=== PATIENT | male | born 1970 | race Caucasian/White ===

== ENCOUNTER 2017-06-21 07:46 | Outpatient (CLI) | payer OTHER | END 2017-06-21 07:59 | disposition home or self-care (01) | LOC: LAB 07:46 | DX: I10 Essential (primary) hypertension (principal); E11.9 Type 2 diabetes mellitus without complications; E03.9 Hypothyroidism, unspecified; E78.2 Mixed hyperlipidemia; E55.9 Vitamin D deficiency, unspecified; N41.0 Acute prostatitis ==

== ENCOUNTER → 2017-06-28 | Outpatient (CLI) | payer OTHER | END | disposition home or self-care (01) | LOC: LAB 08:36 | DX: D64.89 Other specified anemias (principal) ==

== ENCOUNTER 2018-04-17 16:22 | Outpatient (CLI) | payer OTHER | END 2018-04-17 16:31 | disposition home or self-care (01) | LOC: LAB 16:22 | DX: D69.8 Other specified hemorrhagic conditions (principal) ==

== ENCOUNTER 2018-04-21 08:12 | Outpatient (CLI) | payer OTHER | END 2018-04-21 17:37 | disposition home or self-care (01) | LOC: LAB 08:12 | DX: D55.0 Anemia due to glucose-6-phosphate dehydrogenase [G6PD] deficiency (principal); D69.6 Thrombocytopenia, unspecified; B33.8 Other specified viral diseases; B58.8 Toxoplasmosis with other organ involvement; B27.10 Cytomegaloviral mononucleosis without complications ==

== ENCOUNTER 2018-04-27 12:26 | Outpatient (CLI) | payer OTHER | END 2018-04-27 15:00 | disposition home or self-care (01) | LOC: LAB 12:26 | DX: B33.8 Other specified viral diseases (principal); D69.6 Thrombocytopenia, unspecified ==

== ENCOUNTER 2018-06-05 09:10 | Outpatient (CLI) | payer OTHER | END 2018-06-05 13:49 | disposition home or self-care (01) | LOC: LAB 09:10 | DX: D69.8 Other specified hemorrhagic conditions (principal) ==

== ENCOUNTER 2018-06-27 09:42 | Outpatient (CLI) | payer OTHER | END 2018-06-27 13:02 | disposition home or self-care (01) | LOC: LAB 09:42 | DX: D69.8 Other specified hemorrhagic conditions (principal) ==

== ENCOUNTER 2018-07-31 07:32 | Outpatient (CLI) | payer OTHER | END 2018-07-31 16:44 | disposition home or self-care (01) | LOC: LAB 07:32 | DX: Z11.3 Encounter for screening for infections with a predominantly sexual mode of transmission (principal); R74.0 Nonspecific elevation of levels of transaminase and lactic acid dehydrogenase [LDH]; D69.6 Thrombocytopenia, unspecified; A64 Unspecified sexually transmitted disease; Z20.2 Contact with and (suspected) exposure to infections with a predominantly sexual mode of transmission; Z11.4 Encounter for screening for human immunodeficiency virus [HIV] ==

== ENCOUNTER 2018-08-09 07:24 | Outpatient (CLI) | payer OTHER | END 2018-08-09 08:00 | disposition home or self-care (01) | LOC: LAB 07:24 | DX: B20 Human immunodeficiency virus [HIV] disease (principal) ==

== ENCOUNTER 2018-10-24 04:54 | Day surgery (SDC) | payer OTHER ==
[~2018-10-24 04:54] MED LIST: PRILOSEC10 MG PO; [UNRECOGNIZED DRUG - OTHER] PO; [UNRECOGNIZED DRUG - OTHER] PO
== END 2018-10-24 11:30 | disposition home or self-care (01) ==
LOC: CIR.AMB 04:54 → AMB-ENDOS 09:30 → CIR.AMB 11:30
DX: C83.30 Diffuse large B-cell lymphoma, unspecified site (principal); Z21 Asymptomatic human immunodeficiency virus [HIV] infection status
CPT/HCPCS: 36561; C1751

== ENCOUNTER 2018-11-22 09:02 | Outpatient (CLI) | payer OTHER | END 2018-11-22 15:19 | disposition home or self-care (01) | LOC: LAB 09:02 | DX: D64.89 Other specified anemias (principal); D70.1 Agranulocytosis secondary to cancer chemotherapy ==

== ENCOUNTER 2018-12-04 10:46 | Outpatient (CLI) | payer OTHER | END 2018-12-04 15:00 | disposition home or self-care (01) | LOC: LAB 10:46 | DX: D70.1 Agranulocytosis secondary to cancer chemotherapy (principal) ==

== ENCOUNTER 2018-12-18 10:41 | Outpatient (CLI) | payer OTHER | END 2018-12-18 10:50 | disposition home or self-care (01) | LOC: LAB 10:41 | DX: D64.89 Other specified anemias (principal) ==

== ENCOUNTER → 2019-01-01 11:03 | Outpatient (CLI) | payer OTHER | END | disposition home or self-care (01) | LOC: LAB 11:03 | DX: D64.89 Other specified anemias (principal) ==

== ENCOUNTER 2019-01-16 10:59 | Outpatient (CLI) | payer OTHER | END 2019-01-16 11:07 | disposition home or self-care (01) | LOC: LAB 10:59 | DX: D64.89 Other specified anemias (principal) ==

== ENCOUNTER 2019-01-25 08:14 | Outpatient (CLI) | payer OTHER | END 2019-01-25 08:21 | disposition home or self-care (01) | LOC: LAB 08:14 | DX: B20 Human immunodeficiency virus [HIV] disease (principal) ==

== ENCOUNTER 2019-02-15 09:34 | Outpatient (CLI) | payer OTHER | END 2019-02-15 09:37 | disposition home or self-care (01) | LOC: LAB 09:34 | DX: D64.89 Other specified anemias (principal); B20 Human immunodeficiency virus [HIV] disease; Z11.4 Encounter for screening for human immunodeficiency virus [HIV] ==

== ENCOUNTER → 2019-02-26 10:11 | Outpatient (CLI) | payer OTHER | END | disposition home or self-care (01) | LOC: LAB 10:11 | DX: D70.1 Agranulocytosis secondary to cancer chemotherapy (principal); B00.1 Herpesviral vesicular dermatitis ==

== ENCOUNTER → 2019-03-12 11:18 | Outpatient (CLI) | payer OTHER | END | disposition home or self-care (01) | LOC: LAB 11:18 | DX: D64.89 Other specified anemias (principal) ==

== ENCOUNTER → 2019-03-19 10:06 | Outpatient (CLI) | payer OTHER | END | disposition home or self-care (01) | LOC: LAB 10:06 | DX: E03.8 Other specified hypothyroidism (principal); D70.1 Agranulocytosis secondary to cancer chemotherapy ==

== ENCOUNTER 2019-03-26 12:43 | Outpatient (CLI) | payer OTHER | END 2019-03-26 15:00 | disposition home or self-care (01) | LOC: LAB 12:43 | DX: D70.1 Agranulocytosis secondary to cancer chemotherapy (principal) ==

== ENCOUNTER 2019-04-25 09:43 | Outpatient (CLI) | payer OTHER | END 2019-04-25 15:00 | disposition home or self-care (01) | LOC: LAB 09:43 | DX: E03.8 Other specified hypothyroidism (principal); R74.0 Nonspecific elevation of levels of transaminase and lactic acid dehydrogenase [LDH]; C90.00 Multiple myeloma not having achieved remission; M16.9 Osteoarthritis of hip, unspecified ==

== ENCOUNTER 2019-04-27 10:31 | Outpatient (CLI) | payer OTHER | END 2019-04-27 10:53 | disposition home or self-care (01) | LOC: NUCLEAR 10:31 | DX: C83.39 Diffuse large B-cell lymphoma, extranodal and solid organ sites (principal) | CPT/HCPCS: 78815; A9552 ==

== ENCOUNTER 2019-06-12 12:21 | Outpatient (CLI) | payer OTHER | END 2019-06-12 12:32 | disposition home or self-care (01) | LOC: LAB 12:21 | DX: D64.89 Other specified anemias (principal) ==

== ENCOUNTER 2019-08-06 09:24 | Outpatient (CLI) | payer OTHER | END 2019-08-06 09:42 | disposition home or self-care (01) | LOC: LAB 09:24 | DX: D61.818 Other pancytopenia (principal); R74.9 Abnormal serum enzyme level, unspecified; C83.39 Diffuse large B-cell lymphoma, extranodal and solid organ sites; C90.00 Multiple myeloma not having achieved remission ==

== ENCOUNTER → 2019-09-05 11:12 | Outpatient (CLI) | payer OTHER | END | disposition home or self-care (01) | LOC: LAB 11:12 | DX: B19.10 Unspecified viral hepatitis B without hepatic coma (principal); M25.541 Pain in joints of right hand; M25.641 Stiffness of right hand, not elsewhere classified ==

== ENCOUNTER 2019-10-03 09:07 | Outpatient (CLI) | payer OTHER | END 2019-10-03 09:23 | disposition home or self-care (01) | LOC: TOM 09:07 | PROVIDERS: ATTEND Internal Medicine Hematology & Oncology | DX: I26.99 Other pulmonary embolism without acute cor pulmonale (principal) ==

== ENCOUNTER 2019-10-08 10:26 | Outpatient (CLI) | payer OTHER | END 2019-10-08 10:40 | disposition home or self-care (01) | LOC: NUCLEAR 10:26 | PROVIDERS: ATTEND Internal Medicine Hematology & Oncology | DX: I82.622 Acute embolism and thrombosis of deep veins of left upper extremity (principal) ==

== ENCOUNTER 2020-01-09 06:37 | Outpatient (CLI) | payer OTHER | END 2020-01-09 06:50 | disposition home or self-care (01) | LOC: LAB 06:37 | PROVIDERS: ATTEND Specialist | DX: T82.598A Other mechanical complication of other cardiac and vascular devices and implants, initial encounter (principal); Z21 Asymptomatic human immunodeficiency virus [HIV] infection status; Z01.811 Encounter for preprocedural respiratory examination; Z01.812 Encounter for preprocedural laboratory examination; Z01.810 Encounter for preprocedural cardiovascular examination ==

== ENCOUNTER 2020-01-17 07:16 | Day surgery (SDC) | payer OTHER | END 2020-01-17 14:30 | disposition home or self-care (01) | LOC: CIR.AMB 07:16 | PROVIDERS: ATTEND Specialist | DX: T82.598A Other mechanical complication of other cardiac and vascular devices and implants, initial encounter (principal); Z20.828 Contact with and (suspected) exposure to other viral communicable diseases; B07.8 Other viral warts ==

== ENCOUNTER 2020-04-21 09:37 | Outpatient (CLI) | payer OTHER | END 2020-04-21 18:00 | disposition home or self-care (01) | LOC: LAB 09:37 | PROVIDERS: ATTEND Internal Medicine Infectious Disease | DX: Z00.00 Encounter for general adult medical examination without abnormal findings (principal); D64.89 Other specified anemias ==

== ENCOUNTER 2020-05-22 07:45 | Outpatient (CLI) | payer OTHER | END 2020-05-22 07:50 | disposition home or self-care (01) | LOC: NUCLEAR 07:45 | PROVIDERS: ATTEND Internal Medicine Hematology & Oncology | DX: C83.39 Diffuse large B-cell lymphoma, extranodal and solid organ sites (principal) | CPT/HCPCS: 78816; A9552 ==

== ENCOUNTER 2020-10-22 08:00 | Outpatient (CLI) | payer OTHER | END 2020-10-22 08:04 | disposition home or self-care (01) | LOC: LAB 08:00 | PROVIDERS: ATTEND Internal Medicine Hematology & Oncology | DX: B20 Human immunodeficiency virus [HIV] disease (principal); C83.39 Diffuse large B-cell lymphoma, extranodal and solid organ sites; D64.89 Other specified anemias; R74.01 Elevation of levels of liver transaminase levels ==

== ENCOUNTER 2020-11-05 10:08 | Outpatient (CLI) | payer OTHER | END 2020-11-05 10:32 | disposition home or self-care (01) | LOC: SONOGRAMA 10:08 → MAMO-SONO 13:15 | PROVIDERS: ATTEND Internal Medicine Hematology & Oncology | DX: R10.2 Pelvic and perineal pain (principal) ==

== ENCOUNTER 2021-02-26 09:17 | Outpatient (CLI) | payer OTHER | END 2021-02-26 09:18 | disposition home or self-care (01) | LOC: LAB 09:17 | PROVIDERS: ATTEND Internal Medicine Hematology & Oncology | DX: D64.89 Other specified anemias (principal); R74.8 Abnormal levels of other serum enzymes; C22.7 Other specified carcinomas of liver; N40.0 Benign prostatic hyperplasia without lower urinary tract symptoms ==

== ENCOUNTER 2021-02-26 12:45 | Outpatient (CLI) | payer OTHER | END 2021-02-26 13:03 | disposition home or self-care (01) | LOC: TOM 12:45 | PROVIDERS: ATTEND Internal Medicine Hematology & Oncology | DX: N20.0 Calculus of kidney (principal); K62.89 Other specified diseases of anus and rectum ==

== ENCOUNTER 2021-03-02 10:15 | Outpatient (CLI) | payer OTHER | END 2021-03-02 10:17 | disposition home or self-care (01) | LOC: LAB 10:15 | PROVIDERS: ATTEND Internal Medicine Hematology & Oncology | DX: D64.89 Other specified anemias (principal) ==

== ENCOUNTER 2021-07-02 06:42 | Outpatient (CLI) | payer OTHER | END 2021-07-02 07:03 | disposition home or self-care (01) | LOC: LAB 06:42 | PROVIDERS: ATTEND Internal Medicine Hematology & Oncology | DX: D64.9 Anemia, unspecified (principal); E78.5 Hyperlipidemia, unspecified; N40.0 Benign prostatic hyperplasia without lower urinary tract symptoms; C83.39 Diffuse large B-cell lymphoma, extranodal and solid organ sites; N39.0 Urinary tract infection, site not specified; I77.9 Disorder of arteries and arterioles, unspecified; R54 Age-related physical debility; R64 Cachexia; D70.8 Other neutropenia; R74.9 Abnormal serum enzyme level, unspecified ==

== ENCOUNTER 2022-03-09 06:40 | Outpatient (CLI) | payer OTHER | END 2022-03-09 07:04 | disposition home or self-care (01) | LOC: LAB 06:40 | PROVIDERS: ATTEND Internal Medicine Hematology & Oncology | DX: D64.9 Anemia, unspecified (principal); I77.6 Arteritis, unspecified; C83.39 Diffuse large B-cell lymphoma, extranodal and solid organ sites; E03.8 Other specified hypothyroidism; E78.00 Pure hypercholesterolemia, unspecified; C90.00 Multiple myeloma not having achieved remission; J20.0 Acute bronchitis due to Mycoplasma pneumoniae; U07.1 COVID-19; N39.0 Urinary tract infection, site not specified; A64 Unspecified sexually transmitted disease; Z11.3 Encounter for screening for infections with a predominantly sexual mode of transmission ==

== ENCOUNTER 2022-03-09 11:24 | Outpatient (CLI) | payer OTHER | END 2022-03-09 11:37 | disposition home or self-care (01) | LOC: MAMO-SONO 11:24 | PROVIDERS: ATTEND Internal Medicine Hematology & Oncology | DX: N62 Hypertrophy of breast (principal) ==

== ENCOUNTER 2022-05-12 07:11 | Outpatient (CLI) | payer OTHER | END 2022-05-12 07:28 | disposition home or self-care (01) | LOC: LAB 07:11 | PROVIDERS: ATTEND Internal Medicine Hematology & Oncology | DX: E03.8 Other specified hypothyroidism (principal); E78.5 Hyperlipidemia, unspecified; A51.0 Primary genital syphilis ==

== ENCOUNTER → 2022-06-02 08:10 | Outpatient (CLI) | payer OTHER | END | disposition home or self-care (01) | LOC: LAB 08:10 | PROVIDERS: ATTEND Internal Medicine Infectious Disease | DX: B20 Human immunodeficiency virus [HIV] disease (principal) ==

== ENCOUNTER 2023-03-10 10:19 | Emergency (ER) | payer OTHER ==
[~2023-03-10] VITALS: Ht 167.6 cm; Wt 78.9 kg
== END 2023-03-10 11:35 | disposition home or self-care (01) ==
LOC: ER 10:19
DX: J06.9 Acute upper respiratory infection, unspecified (principal)

== ENCOUNTER → 2023-07-22 06:53 | Outpatient (CLI) | payer OTHER ==
[2023-07-22 08:40] LABS: HEMATOCRIT 43.4 % (39.0-48.0); HEMOGLOBIN 14.6 g/dL (13-16.00); MEAN CELL VOLUME 90.7 fL (80.0-100.00); MEAN CORPUSCULAR HEMOGLOBIN 30.6 pg (27.00-32.0); MEAN CORPUSCULAR HGB CONC 33.7 g/dl (32.0-36.0); PLATELET COUNT 355 K/uL (150-450); RED BLOOD COUNT 4.79 M/uL (4.00-6.00); RED CELL DISTRIBUTION WIDTH 13.5 % (11.5-14.5)
[2023-07-22 08:46] LABS: URINE APPEARANCE Clear; URINE BILIRRUBIN Negative (NEGATIVE); URINE BLOOD Negative; URINE COLOR Yellow; URINE GLUCOSE Negative (NEGATIVE); URINE LEUKOCYTE Negative; URINE NITRATE Negative; URINE PROTEIN Negative (NEGATIVE); URINE UROBILINOGEN 0.2 E.U./dl
[2023-07-22 08:47] LABS: URINE RBC 3.3 uL (0.0-20.8); URINE WBC 3.6 uL (0.0-23.2)
[2023-07-22 08:57] LABS: ERYTHROCYTE SEDIMENTATION RATE 18 mm/hr
[2023-07-22 09:27] LABS: URINE BACTERIA 2.5 uL (0.0-1933); URINE EPITHELIAL CELLS 0.1 uL (0.0-38.8)
[2023-07-22 09:27] LABS: ALBUMIN 4.4 gm/dL (3.4-5.0); ALKALINE PHOSPHATASE 93 U/L (50-136); ALT/SGPT 33 U/L (12-78); ANION GAP 8 (10.0-20.0); AST/SGOT 16 U/L (15-37); BILIRUBIN TOTAL 0.45 mg/dL (0.3-1.2); BLOOD UREA NITROGEN 20 mg/dL (7-18); BUN CREA RATIO 19 (7.0-25.0); CARBON DIOXIDE 31 mEq/L (21-32); CHLORIDE 104 mmol/L (98-107); CHOL HDL RATIO 4.8 (0-5.0); CHOLESTEROL 230 mg/dL (0-200); CREATININE SERUM 1.08 mg/dL (0.70-1.30); GFR 72.08; GLOBULINA 3.7 G/DL (2.4-3.5); GLUCOSE FASTING 103 mg/dL (65-100); HDL 48 mg/dl (40-60); LDH 169 U/L (87-241); LDL 154 mg/dl (0-130); OSMOLALITY SERUM 279 MOSM/KG (275-295); POTASSIUM 4.74 mEq/L (3.5-5.1); SODIUM 138 mmol/L (136-145); TOTAL PROTEIN 8.1 gm/dL (6.4-8.2); TRIGLYCERIDES 138 mg/dL (0-150); VLDL 27 (0-39)
[2023-07-22 09:31] LABS: C-REACTIVE PROTEIN < 0.29 MG/DL (0.00-0.29)
[2023-07-23 11:11] LABS: HSV I IGG TYPE SPECIFIC 2.14 index (0.00-0.90); kappa lambda r 0.77 (0.26-1.65); lambda light 24.7 mg/L (5.7-26.3)
[2023-07-24 11:06] LABS: chla t Negative (Negative); neiss Negative (Negative)
[2023-07-24 17:05] LABS: BETA-2-MICROGLOBULINA 1.3 mg/L (0.6-2.4)
== END | disposition home or self-care (01) ==
LOC: LAB 06:53
PROVIDERS: ATTEND Internal Medicine Hematology & Oncology
DX: D64.9 Anemia, unspecified (principal); R74.01 Elevation of levels of liver transaminase levels; I77.6 Arteritis, unspecified; E78.00 Pure hypercholesterolemia, unspecified; E03.8 Other specified hypothyroidism; C83.39 Diffuse large B-cell lymphoma, extranodal and solid organ sites; A60.00 Herpesviral infection of urogenital system, unspecified; N39.0 Urinary tract infection, site not specified; N40.0 Benign prostatic hyperplasia without lower urinary tract symptoms

== ENCOUNTER 2023-11-24 18:30 | Emergency (ER) | payer OTHER ==
[~2023-11-24] VITALS: Ht 167.6 cm; Wt 83.5 kg
== END 2023-11-24 21:23 | disposition home or self-care (01) ==
LOC: ER 18:32
DX: H10.10 Acute atopic conjunctivitis, unspecified eye (principal); E03.8 Other specified hypothyroidism; B20 Human immunodeficiency virus [HIV] disease

== ENCOUNTER → 2024-03-22 08:26 | Outpatient (CLI) | payer OTHER ==
[2024-03-22 09:12] LABS: PH,URINE 8.5 (5.0-8.0); URINE APPEARANCE Clear; URINE BILIRRUBIN Negative (NEGATIVE); URINE BLOOD Negative; URINE COLOR Yellow; URINE GLUCOSE Negative (NEGATIVE); URINE KETONE Negative (NEGATIVE); URINE LEUKOCYTE Negative; URINE NITRATE Negative; URINE PROTEIN Trace (NEGATIVE); URINE UROBILINOGEN 0.2 E.U./dl
[2024-03-22 09:13] LABS: HEMATOCRIT 40.6 % (39.0-48.0); MEAN CORPUSCULAR HEMOGLOBIN 30.3 pg (27.00-32.0); MEAN CORPUSCULAR HGB CONC 34.5 g/dl (32.0-36.0); PLATELET COUNT 282 K/uL (150-450); RED BLOOD COUNT 4.61 M/uL (4.00-6.00); RED CELL DISTRIBUTION WIDTH 14.4 % (11.5-14.5)
[2024-03-22 09:15] LABS: URINE BACTERIA 7.3 uL (0.0-1933); URINE WBC 15.1 uL (0.0-23.2)
[2024-03-22 09:50] LABS: URINE EPITHELIAL CELLS 0.3 uL (0.0-38.8); URINE RBC 1.4 uL (0.0-20.8)
[2024-03-22 10:35] LABS: BILIRUBIN TOTAL 0.35 mg/dL (0.3-1.2); CALCIUM 8.7 mg/dL (8.5-10.1); CHOL HDL RATIO 4.1 (0-5.0); CREATININE SERUM 1.03 mg/dL (0.70-1.30); GFR 75.83; GLOBULINA 3.4 G/DL (2.4-3.5); POTASSIUM 4.75 mEq/L (3.5-5.1); PROSTATIC SPECIFIC ANTIGEN 2.81 NG/ML (0.010-4.00); TOTAL PROTEIN 7.4 gm/dL (6.4-8.2)
== END | disposition home or self-care (01) ==
LOC: LAB 08:26
DX: B20 Human immunodeficiency virus [HIV] disease (principal)

== ENCOUNTER 2024-04-20 16:28 | Emergency (ER) | payer OTHER ==
[~2024-04-20] VITALS: Ht 167.6 cm; Wt 84.4 kg
[2024-04-20] MEDS ORDERED: BIKTARVY 50-201 EACH PO (17:00)
[2024-04-20] MEDS ORDERED: TIROSINT100 MCG PO (17:00)
[2024-04-20] MEDS ORDERED: KETOROLAC TROMETHAMINE 30 MG VIAL IM STA (17:43)
[2024-04-20] MEDS ORDERED: KETOROLAC TROMETHAMINE 30 MG VIAL ONE (18:01)
== END 2024-04-20 20:07 | disposition home or self-care (01) ==
LOC: ER 16:31
DX: H92.01 Otalgia, right ear (principal); Z20.822 Contact with and (suspected) exposure to COVID-19

== ENCOUNTER 2024-04-25 06:49 | Outpatient (CLI) | payer OTHER ==
[~2024-04-25 06:49] MED LIST changes: +BIKTARVY 50-201 EACH PO; +TIROSINT100 MCG PO
[2024-04-25 07:43] LABS: URINE APPEARANCE Clear; URINE BILIRRUBIN Negative (NEGATIVE); URINE BLOOD Negative; URINE COLOR Yellow; URINE GLUCOSE Negative (NEGATIVE); URINE KETONE Negative (NEGATIVE); URINE LEUKOCYTE Negative; URINE NITRATE Negative; URINE PROTEIN Negative (NEGATIVE); URINE UROBILINOGEN 0.2 E.U./dl
[2024-04-25 07:47] LABS: URINE WBC 4.1 uL (0.0-23.2)
[2024-04-25 07:58] LABS: HEMATOCRIT 38.4 % (39.0-48.0); HEMOGLOBIN 12.8 g/dL (13-16.00); MEAN CELL VOLUME 89.7 fL (80.0-100.00); MEAN CORPUSCULAR HEMOGLOBIN 29.9 pg (27.00-32.0); MEAN CORPUSCULAR HGB CONC 33.3 g/dl (32.0-36.0); PLATELET COUNT 385 K/uL (150-450); RED BLOOD COUNT 4.28 M/uL (4.00-6.00); RED CELL DISTRIBUTION WIDTH 13.9 % (11.5-14.5)
[2024-04-25 08:06] LABS: URINE BACTERIA 2.4 uL (0.0-1933); URINE EPITHELIAL CELLS 1.1 uL (0.0-38.8)
[2024-04-25 09:00] LABS: ALBUMIN 3.5 gm/dL (3.4-5.0); BILIRUBIN TOTAL 0.29 mg/dL (0.3-1.2); CALCIUM 9.1 mg/dL (8.5-10.1); CHOL HDL RATIO 3.5 (0-5.0); CREATININE SERUM 0.78 mg/dL (0.70-1.30); GFR 104.52; POTASSIUM 4.9 mEq/L (3.5-5.1); TOTAL PROTEIN 7.5 gm/dL (6.4-8.2)
[2024-04-28 06:04] LABS: hiv 1 < 20 (.)
== END 2024-04-25 06:59 | disposition home or self-care (01) ==
LOC: LAB 06:49
DX: B20 Human immunodeficiency virus [HIV] disease (principal)